=== PATIENT | female | born 1980 | race Two or more races ===

== ENCOUNTER 2021-12-11 14:44 | Outpatient (CLI) | payer OTHER | END 2021-12-11 14:45 | disposition home or self-care (01) | LOC: DTY/OP 14:44 | PROVIDERS: ATTEND Nurse Practitioner Family | DX: E63.9 Nutritional deficiency, unspecified (principal); G35 Multiple sclerosis; R10.13 Epigastric pain | CPT/HCPCS: 97802 ==

== ENCOUNTER 2022-01-19 11:54 | Outpatient (CLI) | payer MEDICARE, MEDICAID | END 2022-01-19 11:55 | disposition home or self-care (01) | LOC: RAD-FRANK 11:54 | PROVIDERS: ATTEND Nurse Practitioner Family | DX: M54.50 Low back pain, unspecified (principal) | CPT/HCPCS: 72100 ==

== ENCOUNTER 2022-07-03 11:35 | Outpatient (CLI) | payer OTHER, MEDICAID ==
[2022-07-03 12:22] LABS: BHCG - Serum Negative (NEGATIVE); Pregs Control Background? CLEAR/WHITE (CLR/WHITE); Pregs Control Bar Appear? YES (CONTROL BAR)
== END 2022-07-03 11:36 | disposition home or self-care (01) ==
LOC: NM 11:35
PROVIDERS: ATTEND Internal Medicine Endocrinology, Diabetes & Metabolism
DX: Z32.00 Encounter for pregnancy test, result unknown (principal); E05.90 Thyrotoxicosis, unspecified without thyrotoxic crisis or storm
CPT/HCPCS: 79005; 84703; A9517 ×2; 36415

== ENCOUNTER 2022-10-06 10:57 | Outpatient (CLI) | payer OTHER, MEDICAID | END 2022-10-06 10:58 | disposition home or self-care (01) | LOC: RAD-FRANK 10:57 | PROVIDERS: ATTEND Nurse Practitioner Family | DX: M25.552 Pain in left hip (principal); M25.521 Pain in right elbow; M16.12 Unilateral primary osteoarthritis, left hip ==

== ENCOUNTER 2023-03-25 10:22 | Outpatient (CLI) | payer OTHER, MEDICAID | END 2023-03-25 10:23 | disposition home or self-care (01) | LOC: RAD-FRANK 10:22 | PROVIDERS: ATTEND Nurse Practitioner Family | DX: M25.521 Pain in right elbow (principal) ==

== ENCOUNTER 2023-08-06 09:35 | Outpatient (CLI) | payer OTHER, MEDICAID | END 2023-08-06 09:36 | disposition home or self-care (01) | LOC: ULT 09:35 | PROVIDERS: ATTEND Nurse Practitioner Family | DX: M54.2 Cervicalgia (principal) | CPT/HCPCS: 76536 ==